=== PATIENT | female | born 1955 | race Caucasian/White ===

== ENCOUNTER → 2017-07-23 | Outpatient (CLI) | payer BC ==
--- NOTE | 2017-07-23 21:25 | MR ---
EXAMINATION TYPE: MR knee RT wo con DATE OF EXAM: 07/23/2017 COMPARISON: Outside right knee x-ray July 10, 2017. HISTORY: Rt knee pain, medial/posterior after twisting motion 3 mos ago TECHNIQUE: Multiplanar, multisequence images of the knee is performed without IV contrast. FINDINGS: MEDIAL MENISCUS: Anterior horn is intact without tear. There are oblique a few oblique and horizontal areas of increased signal extending to superior articular surface consistent with full-thickness men iscal tear. LATERAL MENISCUS: Anterior and posterior horns are intact without tear. CRUCIATE LIGAMENTS: The anterior and posterior cruciate ligaments are intact and unremarkable. COLLATERAL LIGAMENTS: The medial collateral ligament and lateral collateral ligament complex are inta ct. Mild fluid signal surrounds medial collateral ligament on coronal image 17. EXTENSOR MECHANISM: Visualized quadriceps and patellar tendons are intact. EFFUSION: There is small to moderate size suprapatellar joint effusion. POPLITEAL CYST: There is moderate size popliteal/parsons cyst measuring 4.5 cm on long axis on sagittal image 10. TRICOMPARTMENT SPACES: Mild to moderate tricompartment joint space loss is present most prominent med ial tibiofemoral compartment. Mild tricompartment spurring is seen. CARTILAGE: Posterior patellar cartilage is fairly well-maintained. There is cartilaginous thinning me dial tibiofemoral compartment. BONE MARROW SIGNAL: No focal abnormal marrow signal is appreciated. OTHER: No additional significant abnormality is appreciated. IMPRESSION: 1. Full-thickness tear posterior horn of medial meniscus. 2. Mild MCL sprain. 3. Mild to moderate tricompartment degenerative changes most likely on basis of osteoarthrosis as is most prominent in medial tibiofemoral compartment. 4. Small to moderate-sized suprapatellar joint effusion. 5. Moderate-sized popliteal cyst.
== END | disposition home or self-care (01) ==
LOC: RADMRIMAIN 17:50
PROVIDERS: ATTEND Orthopaedic Surgery
DX: S83.241A Other tear of medial meniscus, current injury, right knee, initial encounter (principal); S83.411A Sprain of medial collateral ligament of right knee, initial encounter; M71.21 Synovial cyst of popliteal space [Baker], right knee; M25.461 Effusion, right knee

== ENCOUNTER 2017-09-27 09:47 | Day surgery (SDC) | payer BC ==
[2017-09-24 11:32] VITALS: BMI 26.1
--- NOTE | 2017-09-26 15:03 | HP ---
HISTORY AND PHYSICAL DATE OF SERVICE: 09/27/2017 Gabby Gomez is a 62-year-old patient seen with progressive right knee pain. We discussed treatment options. She elected to proceed with right knee arthroscopy. Consent was obtained. PAST MEDICAL HISTORY: Osteoarthritis. PAST SURGICAL HISTORY: Cataract surgery, hysterectomy, tonsillectomy. DAILY MEDICATIONS: Mobic. ALLERGIES: ZYBAN. SOCIAL HISTORY: Patient denies tobacco use. Physical evaluation right knee: Range of motion is negative 4 to 115 degrees. There is a mild effusion present. There is tenderness along the medial joint line. Positive medial Matthew's. Ligaments are stable. Hip rotation without pain. Distal neurovascular exam is intact. Right knee radiographs revealed moderate medial compartment osteoarthritis. MRI of the right knee revealed medial meniscal tear and osteoarthritis. IMPRESSION: Internal derangement of the right knee with medial meniscal tear. PLAN: Right knee arthroscopy with partial meniscectomy and debridement. MMODL / IJN: [id number] /
[~2017-09-27 09:47] MED LIST: DEXAMETHASONE SOD PHOSPHATE 10 MG/ML 1 ML VIAL IV ONE; LACTATED RINGERS 1,000 ML IV SCH; MIDAZOLAM 2 MG/2 ML VIAL IV PRN; ONDANSETRON 4 MG/2 ML VIAL IVP ONE; ceFAZolin 1,000 MG in DEXTROSE/WATER 1 50ML.BAG IV ONE
[2017-09-27] MEDS ORDERED: LIDOCAINE 1% 20 ML VIAL (10MG/ML) FOR IV START INTRADERMA ONE (10:42)
[2017-09-27] MEDS ORDERED: LIDOCAINE 1% INJ 10MG/ML (20 ML MDV) ONE (12:22)
[2017-09-27] MEDS ORDERED: SUCCINYLCHOLINE CHLORIDE 100 MG/5 ML SYR IV ONE (12:22)
[2017-09-27] MEDS ORDERED: KETOROLAC 30 MG/ML 1 ML VIAL ONE (12:22)
[2017-09-27] MEDS ORDERED: fentaNYL (PF) 50 MCG/ML 2 ML AMP ONE (12:22)
[2017-09-27] MEDS ORDERED: MIDAZOLAM 2 MG/2 ML VIAL ONE (12:22)
[2017-09-27] MEDS ORDERED: PROPOFOL 10 MG/ML 20 ML VIAL IV ONE (12:22)
[2017-09-27] MEDS ORDERED: BUPIVACAINE (PF) 0.25% 30 ML VIAL SQ ONE (12:52)
[2017-09-27] MEDS ORDERED: LACTATED RINGERS 1,000 ML IV ONE (13:10)
--- NOTE | 2017-09-27 13:21 | P.OP ---
Date of Procedure: 09/27/17 Preoperative Diagnosis: Internal derangement right knee Postoperative Diagnosis: 1. Tear medial and lateral meniscus right knee 2. Grade 2/3 chondromalacia medial femoral condyle right knee 3. Grade 1/2 chondromalacia patella right knee 4. Medial plica right knee 5. Reactive synovitis medial and suprapatellar compartments right knee Procedure(s) Performed: 1. Arthroscopic partial medial and lateral meniscectomy right knee 2. Arthroscopic chondroplasty medial femoral condyle right knee 3. Arthroscopic chondroplasty patella right knee 4. Arthroscopic resection medial plica right 5. Arthroscopic partial synovectomy medial and suprapatellar compartments right knee Implants: None Anesthesia: GETA, local Surgeon: Librado Gaitan Estimated Blood Loss (ml): 5 Pathology: none sent Condition: stable Disposition: PACU Indications for Procedure: 62-year-old patient seen with progressive right knee pain. After treatment options were discussed, she elected to proceed with arthroscopy. Operative Findings: see description of procedure Description of Procedure: Patient was taken to the operative suite. Patient underwent a general anesthetic by the department of anesthesia. Patient was given preoperative antibiotics. The right lower extremity was placed in a well-padded arthroscopic leg cabrales. The right leg was prepped and draped in the normal sterile orthopedic fashion. A lateral parapatellar and suprapatellar incision was made. Trochars were inserted. Arthroscopy was initiated. Suprapatellar pouch revealed diffuse thick reactive synovitis. The patellofemoral joint appeared to articulate congruently. There was grade 1/2 chondromalacia with small osteochondral tears present. The scope was guided into the medial gutter. There was a large medial plica which did seem to impinge along the medial femoral condyle with range of motion.. The scope was then guided into the medial compartment. A medial parapatellar incision was made. Trocar inserted followed by probe. There was a complex tear posterior horn medial meniscus extending into the midbody. There were grade 2 and 3 chondromalacia changes of the medial femoral condyle with some osteochondral tears present. There was reactive synovitis anteriorly. I performed a partial medial meniscectomy down to stable tissue. I performed a chondroplasty of the medial femoral condyle down to stable tissue and partial synovectomy. The residual meniscus was stable. The residual osteochondral surface was stable. There was good decompression of the reactive synovitis. Scope and probe were then guided into the intercondylar notch. Cruciates were identified, probed and found to be stable. The scope and probe were then guided into lateral compartment. There was some small radial tears noted in the midbody of the lateral meniscus. There were grade 1 chondromalacia changes lateral compartment with no osteochondral tears present. No reactive synovitis, no loose bodies. I performed a partial lateral meniscectomy down to stable tissue. The residual meniscus was probed and found to be stable. The scope was in guided back into the suprapatellar compartment. I introduced a motorized shaver into the super patellar compartment. I debrided that medial plica and performed a chondroplasty of the patella and partial synovectomy. Shaver was removed. I took the knee through a range of motion noted complete resection of the plica. There was good decompression of the reactive synovitis and the residual osteochondral surface of patella appeared stable. I took one more look around the entire knee, no residual debris. Instruments were now removed from the joint. The joint was infiltrated with .25% Marcaine. Steri- Strips were applied to the portal sites. Sterile dressings were applied. The patient was placed into a JEAN hose. No tourniquet was utilized. The patient was awakened, transferred to a bed and taken to recovery stable satisfactory condition.
[2017-09-27 13:22] VITALS: TEMP 97.7
[2017-09-27] MEDS: HYDROmorphone 0.5 MG/0.5 ML SYRINGE IVP PRN ×2 (13:52→13:56)
[2017-09-27 14:26] VITALS: RESP 18
[2017-09-27] MEDS ORDERED: HYDROcodone/APAP 5-325MG 1 EACH TAB PO ONE (14:26)
[2017-09-27 14:57] VITALS: BP 122/80; PULSE 80
== END 2017-09-27 15:16 | disposition home or self-care (01) ==
LOC: OR 09:47
PROVIDERS: ATTEND Orthopaedic Surgery
DX: S83.241A Other tear of medial meniscus, current injury, right knee, initial encounter (principal); S83.281A Other tear of lateral meniscus, current injury, right knee, initial encounter; X58.XXXA Exposure to other specified factors, initial encounter; M22.41 Chondromalacia patellae, right knee; M67.51 Plica syndrome, right knee; M65.861 Other synovitis and tenosynovitis, right lower leg; M19.90 Unspecified osteoarthritis, unspecified site; Z87.891 Personal history of nicotine dependence; Z87.442 Personal history of urinary calculi; K21.9 Gastro-esophageal reflux disease without esophagitis; Z79.1 Long term (current) use of non-steroidal anti-inflammatories (NSAID); Z79.899 Other long term (current) drug therapy; Z88.8 Allergy status to other drugs, medicaments and biological substances
CPT/HCPCS: 29880; J2250; J1100; J2405; J2001; J3010; J1885; J0690; J0330; J2704; J1170